=== PATIENT | female | born 1990 | race Caucasian/White ===

== ENCOUNTER 2023-06-21 12:22 | Emergency (ER) | payer OTHER, SELFPAY ==
--- NOTE | ~2023-06-21 | XR_ITS ---
Clinical Indication: Chest heaviness, shortness of breath PA and lateral views of the chest: Comparison: None Findings: The lungs are clear, without evidence of focal consolidation or pleural effusion. Cardiome diastinal silhouette is within normal limits. Bones and soft tissues are unremarkable. Impression: Normal chest. Reviewed, dictated and finalized at [facility]. Impression: Normal chest.
--- NOTE | ~2023-06-21 | CT_ITS ---
EXAMINATION: CT brain wo con DATE: 06/21/2023 13:17 INDICATION: Left arm numbness. Headache and dizziness. TECHNIQUE: Computed tomography (CT) of the head was performed without intravenous contrast. The mA wa s adjusted according to patient size. Iterative reconstruction technique was employed. The dose-lengt h product was 605.33 mGy-cm. COMPARISON: None FINDINGS: There is no intracranial hemorrhage, acute infarction, or abnormal intracranial mass lesion . The ventricles are normal in size. The paranasal sinuses are clear. The mastoid air cells are katharine l. IMPRESSION: 1. Normal brain. Reviewed, dictated and finalized at [facility]. IMPRESSION: 1. Normal brain.
--- NOTE | 2023-06-21 12:31 | ED.NEUROSD ---
HPI - Neuro Symptoms/Deficit General Stated Complaint: L arm numbness Time Seen by Provider: 06/21/23 12:26 Source: patient, EMS and RN notes reviewed Mode of arrival: EMS Limitations: no limitations History of Present Illness Onset (ago): hour(s) (3.5) Location: left arm History of same: No Severity: moderate Quality: numb, tingling and constant PMFSH Past Medical History Medical History (Updated 06/21/23 @ 12:32 by Elliot Shane MD) Anxiety with depression Iron deficiency Surgical History Surgical History (Updated 06/21/23 @ 12:33 by Elliot Shane MD) History of tonsillectomy Social History Social History (Updated 06/21/23 @ 12:33 by Elliot Shane MD) Smoking status: Current every day smoker Tobacco type: cigarettes Discharge Plan Discharge Follow-up/Referrals: Jacques Ledezma M.D. [Primary Care Provider] -
[2023-06-21 12:36] VITALS: BP 110/74; PULSE 81; RESP 20; TEMP 37.3; O2SAT 100
--- NOTE | 2023-06-21 12:43 | ECG_ITS ---
Measurements Intervals Patriot Rate: 73 P: -12 RI: 147 QRS: 27 QRSD: 89 T: 36 QT: 377 QTc: 417 Interpretive Statements SINUS RHYTHM BASELINE ARTIFACT- I, II, III, AVR, AVL, AVF, V1-V6 NORMAL ECG NO PREVIOUS ECG AVAILABLE FOR COMPARISON Electronically Signed On 06-21-2023 13:11:55 CDT by Jadon Larsen D.O.
--- NOTE | 2023-06-21 12:43 | ED.CHESTPAIN ---
HPI - Chest Pain General Chief Complaint: Unspecified Stated Complaint: L arm numbness Time Seen by Provider: 06/21/23 12:26 Source: patient, EMS and RN notes reviewed Mode of arrival: EMS Limitations: no limitations History of Present Illness HPI narrative: patient presents via EMS. They initially gone to another facility but their CT scanner was down. She reports that she has some heaviness numbness to her left arm. EMS felt that she might need CT scan so therefore they left the other facility and came here. After my questioning she says that she had some heaviness in her left chest seemed to go across to the right and also into her left arm. She felt nauseous, dizzy lightheaded. She also complains of a headache. She has she has history of headaches. This all started at 9:00 a.m. proximally 3-1/2 hours prior to arrival. She said she felt a little short of breath. She has no pain now. She only has the numbness in her left arm. He has a history of anxiety depression. She is a smoker. No other risk factors. MD complaint: chest heaviness Onset (ago): hour(s) (3.5) Timing of current episode: constant Prior episodes: No Onset: during rest Pain location: left chest Pain radiation: left arm Severity: mild Quality: heaviness Relieving factors: nothing Exacerbating factors: nothing Associated symptoms: nausea and dyspnea Treatment prior to arrival: none Risk Factors Coronary artery disease risk factors: none Thoracic aortic dissection risk factors: none Related Data Allergies Allergy/AdvReac Type Severity Reaction Status Date / Time No Known Allergies Allergy Verified 06/21/23 13:05 Review of Systems Review of Systems: All systems reviewed & are unremarkable except as noted in HPI and below PMFSH Past Medical History Medical History (Updated 06/21/23 @ 13:51 by Elliot Shane MD) Anxiety with depression Iron deficiency Surgical History Surgical History (Updated 06/21/23 @ 12:33 by Elliot Shane MD) History of tonsillectomy Social History Social History (Updated 06/21/23 @ 12:33 by Elliot Shane MD) Smoking status: Current every day smoker Tobacco type: cigarettes Exam Const: General: healthy appearing, no acute distress and alert Nutritional Appearance: well nourished Orientation/consciousness: patient oriented x3 Limitations: no limitations Other: Female tech in room during examination. HENMT: Head: normal to inspection Ears: external ears normal Face/Nose/Sinus: Normal external nose present Face and sinus: normal facial exam Mouth: Yes moist mucous membranes Eyes: Conjunctivae: conjunctivae normal Pupils: Equal, round and reactive pupils present EOM: EOMs intact bilaterally Neck: Neck: normal visual inspection Resp: Effort & Inspection: normal respiratory effort Auscultation: clear to auscultation bilaterally Cardio: Rate: regular rate Rhythm: regular rhythm GI: GI Palp: Yes Soft to palpation and No Tenderness to palpation present (GI) Auscultation: normal bowel sounds Back/Spine/Pelvis: Cervical Spine: cervical ROM normal Thoracic/Lumbar Spine: thoraco-lumbar ROM normal Skin: General skin exam: normal color Rashes: no rashes Neuro: General: patient oriented x3, moves all extremities, no focal motor deficits and CN's II-XI intact bilaterally Speech: normal speech Gait exam (Neuro): Normal gait present Extrem: General: normal to inspection and no clubbing, cyanosis or edema Psych: Mental Status: mental status grossly normal Affect: normal affect Attitude: cooperative Course Vital Signs Vital signs: Vital Signs Temperature 37.3 C 06/21/23 12:36 Pulse Rate 81 06/21/23 12:36 Respiratory Rate 06/21/23 12:36 Blood Pressure 110/74 06/21/23 12:36 Pulse Oximetry 100 06/21/23 12:36 Oxygen Delivery Room Air 06/21/23 12:36 Temperature 37.3 C 06/21/23 12:36 Pulse Rate 81 06/21/23 12:36 Respiratory Rate 20 06/21/23 12:49
[2023-06-21 12:49] VITALS: RESP 20; O2SAT 95
[2023-06-21 13:06] LABS: Basophils Absolute Auto 0.03 K/mm3 (0.00-0.10); Basophils Percent Auto 0.4 % (0.0-1.0); Eosinophils Absolute Auto 0.19 K/mm3 (0.02-0.50); Eosinophils Percent Auto 2.4 % (1.0-6.0); Hematocrit 32.9 % (35.0-49.0); Hemoglobin 10.3 g/dL (12.0-15.0); Immature Granulocyte Absolute 0.03 K/mm3 (0.00-0.00); Immature Granulocyte Percent A 0.4 % (0.0-0.0); Lymphocytes Absolute Auto 2.07 K/mm3 (1.10-4.50); Lymphocytes Percent Auto 26.3 % (18.0-42.0); Mean Corpuscular HGB Conc 31.3 g/dL (32.0-36.0); Mean Corpuscular Volume 79.9 fL (78.0-102.0); Mean Platelet Volume 9.6 fl (9.2-11.8); Monocytes Absolute Auto 0.49 K/mm3 (0.10-0.90); Monocytes Percent Auto 6.2 % (2.0-11.0); Neutrophils Absolute Auto 5.1 K/mm3 (1.7-7.2); Neutrophils Percent Auto 64.3 % (50.0-70.0); Platelet Count Result 421 K/mm3 (150-420); Red Blood Count 4.12 M/mm3 (4.20-5.40); Red Cell Distribution Width 16.9 % (11.6-14.4); White Blood Count 7.9 K/mm3 (4.8-10.8)
[2023-06-21] MEDS: ASPIRIN 81 MG CHEWABLE TABLET 324 MG PO (13:06)
[2023-06-21 13:19] LABS: Magnesium 1.9 mg/dL (1.8-2.4)
[2023-06-21 13:21] LABS: Amphetamine Screen Urine Negative (Negative); Barbiturate Screen Urine Negative (Negative); Benzodiazepines Screen Urine Negative (Negative); Cannabinoid Screen Urine Negative (Negative); Cocaine Screen Urine Negative (Negative); Methadone Screen Urine Negative (Negative); Opiate Screen Urine Negative (Negative); Phencyclidine Screen Urine Negative (Negative)
[2023-06-21 13:24] LABS: Alanine Aminotransferase 21 U/L (14-59); Albumin Level 3.9 g/dL (3.4-5.0); Alkaline Phosphatase 85 U/L (46-116); Anion Gap 10 mmol/L (8-16); Aspartate Amino Transferase < 10 U/L (15-37); Bilirubin,Total 0.2 mg/dL (0.00-1.00); Blood Urea Nitrogen 11 mg/dL (7-18); Calcium 8.7 mg/dL (8.5-10.1); Carbon Dioxide 25 mmol/L (21-32); Chloride 106 mmol/L (98-108); Estimated CRCL calculation 96 ml/min; Estimated Glomerular Filt Rate > 60; Glucose 99 mg/dL (70-99); Osmolality Calculated 291 mOsm/kg (285-295); Potassium 3.6 mmol/L (3.5-5.1); Sodium 141 mmol/L (136-145); Total Protein 7.2 g/dL (6.4-8.2)
[2023-06-21 13:25] LABS: CRP < 0.5 mg/dL (0.0-0.9); Troponin I < 4.0 ng/L (0.00-60.4)
[2023-06-21 13:26] LABS: Partial Thromboplastin Time 26.6 SEC (23.90-30.70); Prothrombin Time 10.5 Seconds (9.64-11.0)
[2023-06-21 13:36] LABS: D Dimer 0.19 mg/L (0.19-0.50)
[2023-06-21 14:11] VITALS: BP 116/84; PULSE 87; RESP 20; TEMP 36.8; O2SAT 98
== END 2023-06-21 14:16 | disposition home or self-care (01) ==
PROVIDERS: Emergency Provider Emergency Medicine; PCP Family Medicine
DX: R07.89 Other chest pain (principal); F17.210 Nicotine dependence, cigarettes, uncomplicated
CPT/HCPCS: 36415; 70450; 71046; 80053; 80307; 83735; 84484; 85025; 85380; 85610; 85730; 86140; 93005; 99284; A9270